=== PATIENT | female | born 1960 | race African-American/Black ===

== ENCOUNTER 2017-04-07 12:37 | Emergency (ER) | payer OTHER ==
[~2017-04-07] VITALS: Wt 70.0 kg
[2017-04-07] MEDS ORDERED: HYDROCODONE/APAP (5/325) TAB PO ONE (13:30)
[2017-04-07] MEDS ORDERED: LEVO25TA50 PO (13:44)
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
[2017-04-07] MEDS ORDERED: HYDR-906 PO (15:02)
--- NOTE | 2017-04-07 15:09 | RADRPT ---
PROCEDURE: XR Chest AP portable CLINICAL INDICATION: Trauma TECHNIQUE: An AP portable radiograph of the chest was submitted. COMPARISON: None. FINDINGS: Support Hardware: None Cardiovascular: The cardiovascular silhouette appears unremarkable except for mild aortic tortuosity . Lung Farnsworth: The lung farnsworth appear clear with no nodule, alveolar infiltrate, or interstitial promi nence evident. Pleural Spaces: No pneumothorax or pleural effusion is identified. Osseous Structures: The osseous structures appear intact. Soft Tissues: The soft tissues appear unremarkable. IMPRESSION: 1. Mild aortic tortuosity. 2. Otherwise, unremarkable portable chest. Physician Macie Date Time Electronically viewed and signed by Physician Macie on 04/07/2017 15:08 /
--- NOTE | 2017-04-07 15:11 | RADRPT ---
PROCEDURE: XR Thoracic Spine CLINICAL INDICATION: Trauma TECHNIQUE: 2 Views of the thoracic spine were submitted. COMPARISON: None FINDINGS: The osseous structures appear well mineralized and intact. No fracture or destructive process is ev ident. there is no significant spurring. The osseous elements align satisfactorily without subluxation. The disk spaces are adequately maintained. Punctate calcifications are seen on the lateral projection in the epigastrium suspicious for changes of chronic pancreatitis. IMPRESSION: 1. Unremarkable two-view thoracic spine study. 2. Punctate calcifications project through the epigastrium suspicious for changes of chronic pancre atitis. Physician Macie Date Time Electronically viewed and signed by Physician Macie on 04/07/2017 15:10 /
--- NOTE | 2017-04-07 15:20 | RADRPT ---
PROCEDURE: XR Cervical Spine. CLINICAL INDICATION: Trauma. Neck pain. TECHNIQUE: Three views of the cervical spine were performed. Frontal, lateral, and AP open-mouth o dontoid. The images were reviewed on a PACS workstation. COMPARISON: None. FINDINGS: There is normal stature and alignment of the vertebrae. There is no fracture. There is no lytic or blastic lesion. The disk height is normal. The prevertebral soft tissues are normal. IMPRESSION: 1. Unremarkable images of the cervical spine. RPTAT: QQ .Russ Rivera MD, MD Date Time Electronically viewed and signed by .Russ Rivera MD, MD on 04/07/2017 15:20 .R/
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
[2017-04-07 16:22] VITALS: BP 160/82; PULSE 63; RESP 20; TEMP 98.2
== END 2017-04-07 16:25 | disposition home or self-care (01) ==
LOC: E/R 12:37
DX: S80.02XA Contusion of left knee, initial encounter (principal); S39.92XA Unspecified injury of lower back, initial encounter; E03.9 Hypothyroidism, unspecified; V89.2XXA Person injured in unspecified motor-vehicle accident, traffic, initial encounter
CPT/HCPCS: 71010; 72040; 72072; 72100